=== PATIENT | male | born 1950 | race Caucasian/White ===

== ENCOUNTER → 2017-07-30 | Outpatient (CLI) | payer MEDICARE, OTHER | LOC: COL.PUL 08:48 | DX: J44.9 Chronic obstructive pulmonary disease, unspecified (principal) | CPT/HCPCS: J7674 ==

== ENCOUNTER → 2020-04-25 | Outpatient (CLI) | payer MEDICARE | LOC: COL.VAS 11:34 | DX: M79.89 Other specified soft tissue disorders (principal) ==

== ENCOUNTER → 2020-12-11 | Outpatient (CLI) | payer MEDICARE | LOC: COL.RAD 12:50 | DX: M54.5 Low back pain (principal) | CPT/HCPCS: G0260; J3301 ==

== ENCOUNTER → 2021-03-13 | Outpatient (CLI) | payer MEDICARE | LOC: COL.RAD 13:38 | DX: M54.50 Low back pain, unspecified (principal) | CPT/HCPCS: G0260; J3301 ==